=== PATIENT | female | born 1965 | race Caucasian/White ===

== ENCOUNTER 2021-12-08 10:17 | Day surgery (SDC) | payer OTHER ==
[2021-12-06 18:38] VITALS: BMI 35.2
[2021-12-08] MEDS ORDERED: LIDOCAINE HCL 1%, 10 MG/ML (20ML VIAL) ONE (12:38)
[2021-12-08] MEDS ORDERED: BUPIVACAINE HCL 100 ML ONE (12:38)
[2021-12-08] MEDS ORDERED: PROPOFOL 20 ML ONE (12:43)
[2021-12-08] MEDS ORDERED: fentaNYL CITRATE 250 MCG/5 ML VIAL ONE (12:43)
[2021-12-08] MEDS ORDERED: MIDAZOLAM HCL 2 MG/2 ML SINGLE DOSE VIAL ONE ×2 (12:43→12:45)
[2021-12-08] MEDS ORDERED: PROMETHAZINE HCL 25 MG/1 ML VIAL IVPUSH PRN (14:07)
[2021-12-08] MEDS ORDERED: oxyCODONE HCL 5 MG TABLET PO PRN (14:07)
[2021-12-08] MEDS ORDERED: ONDANSETRON 4 MG/2 ML VIAL IVPUSH PRN (14:07)
[2021-12-08] MEDS ORDERED: LACTATED RINGERS SOLUTION 1,000 ML IV SCH (14:15)
[2021-12-08 15:13] VITALS: BP 147/78; PULSE 72
[2021-12-08 15:44] VITALS: TEMP 97.7
== END 2021-12-08 15:30 | disposition home or self-care (01) ==
LOC: FASU 10:17 → MERGE 11:30 → FASU 15:30
PROVIDERS: ATTEND Orthopaedic Surgery
PROC: 0MQ80ZZ Repair Left Hand Bursa and Ligament, Open Approach (ICD-10-PCS; 2021-12-08)
PROC: 0PSS04Z Reposition Left Thumb Phalanx with Internal Fixation Device, Open Approach (ICD-10-PCS; principal; 2021-12-08 13:13)
DX: S62.512A Displaced fracture of proximal phalanx of left thumb, initial encounter for closed fracture (principal); S53.32XA Traumatic rupture of left ulnar collateral ligament, initial encounter; V49.9XXA Car occupant (driver) (passenger) injured in unspecified traffic accident, initial encounter; Y93.89 Activity, other specified; Y92.9 Unspecified place or not applicable
CPT/HCPCS: 84703; 94760